=== PATIENT | female | born 1995 | race Caucasian/White ===

== ENCOUNTER 2022-05-17 01:11 | Emergency (ER) | payer BC, SELFPAY ==
[2022-05-17] VITALS (14 sets, daily range): BP systolic 125–154; BP diastolic 77–109; PULSE 89–116; RESP 15–20; TEMP 37.1; O2SAT 95–100
--- NOTE | ~2022-05-17 | CT_ITS ---
EXAMINATION: CT abdomen pelvis w con INDICATION: Right upper quadrant pain TECHNIQUE: Computed tomographic images of the abdomen and pelvis were obtained after the administrati on of 100 cc of Omnipaque 350 intravenous contrast. The dose-length product (DLP) was 1456.49 mGy-cm. Automated exposure control and iterative reconstruction technique were employed. COMPARISON: 12/07/2011 FINDINGS: The lung bases are clear. The heart size is normal. There is focal fatty infiltration of th e liver near the ligamentum teres. The spleen, pancreas, gallbladder, and adrenal glands are normal. The kidneys are unremarkable. No pathologically enlarged abdominal or pelvic lymph nodes are identifi ed. There is no free intraperitoneal gas or evidence of bowel obstruction. The appendix is normal. A moderate volume of colonic stool is present. IMPRESSION: 1. No CT correlate for the patient's symptoms. Reviewed, dictated and finalized at location A.
[2022-05-17 01:57] LABS: Appearance Urine Clear (Clear); Bilirubin Urine Negative (Negative); Blood Urine Trace-lysed (Negative); Color Urine Yellow (Yellow); Glucose Urine UA 3+ mg/dL (Negative); Ketones Urine 2+ mg/dL (Negative); Leukocyte Esterase Ur Negative LEU/UL (Negative); Nitrate Urine Negative (Negative); Protein Urine Negative (Negative); Urobilinogen Urine 0.2 mg/dL (<2.0); pH Urine 5.5 (5.0-9.0)
[2022-05-17 01:57] LABS: Basophils Absolute Auto 0.1 K/mm3 (0.0-0.1); Basophils Percent Auto 0.7 % (0.2-1.2); Eosinophils Absolute Auto 0.1 K/mm3 (0-0.3); Eosinophils Percent Auto 1.8 % (0-4.4); Hematocrit 42.3 % (37.0-47.0); Hemoglobin 14.4 g/dL (12.0-15.0); Immature Granulocyte Absolute 0.02 K/mm3 (0.00-0.031); Immature Granulocyte Percent A 0.3 % (0-0.5); Lymphocytes Absolute Auto 2.08 K/mm3 (0.9-3.2); Lymphocytes Percent Auto 29.5 % (18.3-44.2); Mean Corpuscular Hemoglobin 28.2 pg (26-34); Mean Corpuscular Volume 82.8 fl (80-100); Mean Platelet Volume 10.4 fl (7.4-10.4); Monocytes Absolute Auto 0.8 K/mm3 (0.1-0.6); Monocytes Percent Auto 11.2 % (2.6-8.5); Neutrophils Percent Auto 56.5 % (45.5-73.1); Platelet Count Result 218 k/mm3 (150-375); Red Blood Count 5.11 M/mm3 (4.2-5.4)
[2022-05-17 02:05] LABS: Mucus Urine Rare /lpf; RBC Urine 0-2 /hpf (0-2); Squamous Epithelial Cell Urine Rare /hpf (Few); WBC Urine 0-3 /hpf
[2022-05-17 02:11] LABS: Carbon Dioxide 24 mmol/L (22-30); Chloride 97 mmol/L (98-107)
[2022-05-17 02:24] LABS: Albumin Level 4.7 g/dL (3.5-5.1); Alkaline Phosphatase 90 U/L (38-126); Aspartate Amino Transferase 21 U/L (14-36); Bilirubin,Total 0.7 mg/dL (0.2-1.3); Calcium 9.4 mg/dL (8.4-10.2); Estimated CRCL calculation 153 ml/min; Estimated Glomerular Filt Rate > 60; Glucose 318 mg/dL (65-110); Potassium 3.9 mmol/L (3.4-5.0)
[2022-05-17 02:43] LABS: Add Urine Microscopic? YES
[2022-05-17 02:49] LABS: Anion Gap 14 mmol/L (8-16); Blood Urea Nitrogen 15 mg/dL (7-17); Lipase 95 U/L (23-300); Sodium 135 mmol/L (137-145)
[2022-05-17 03:13] LABS: Alanine Aminotransferase 21 U/L (6-35)
[2022-05-17] MEDS: ONDANSETRON INJ 4 MG/2 ML VIAL IV PUSH (03:57)
[2022-05-17] MEDS: LACTATED RINGERS 1,000 ML 999 ML IV CONT (03:57)
--- NOTE | 2022-05-17 03:58 | ED.GENADULT ---
HPI - General Adult General Chief complaint: Unspecified Stated complaint: multiple complaints Time Seen by Provider: 05/17/22 01:59 History of Present Illness HPI narrative: 27-year-old female with history of diabetes who states that she has been feeling slightly nauseous with some right upper quadrant discomfort for a few days, she is also endorsing some sinus drainage. No fevers or chills. Related Data Allergies Allergy/AdvReac Type Severity Reaction Status Date / Time No Known Allergies Allergy Verified 05/17/22 01:52 Review of Systems Review of Systems: CONST: No fever. HEENT: Sinus drainage C/V: No chest pain RESP: No cough GI: Reports abdominal pain, nausea, vomiting : No dysuria. M/S: No joint pain. SKIN: No rash. NEURO: [No headache or focal numbness or weakness] PSYCH: [No depression] [facility] Past Medical History Medical History (Updated 05/17/22 @ 06:40 by Jessica Suero MD) Diabetes Exam Narrative: EXAMINATION OF ORGAN SYSTEMS/BODY AREAS: Constitutional: Vital signs per nursing GENERAL:[No acute distress, non-toxic appearing.] HEAD: Normal with no signs of head trauma. EYES: EOMI, conjunctiva normal ENT: Hearing grossly intact, no sinus tenderness LUNGS: Nonlabored breathing. HEART: [Regular rate and rhythm] ABD: [Soft], [minimally tender to deep palpation RUQ without Carter's sign] EXT: Normal range of motion SKIN: [No rashes or lesions.] NEURO: [Alert and oriented x 3. No gross focal sensory or strength deficits.] PSYCH: Normal affect Course Vital Signs Vital signs: Vital Signs Temperature 98.8 F 05/17/22 01:14 Pulse Rate 116 H 05/17/22 01:14 Respiratory Rate 16 05/17/22 01:14 Blood Pressure 154/109 H 05/17/22 01:14 Pulse Oximetry 100 05/17/22 01:14 Temperature 98.8 F 05/17/22 01:14 Pulse Rate 90 05/17/22 05:28 Respiratory Rate 18 05/17/22 05:28 Blood Pressure 137/82 05/17/22 05:28 Pulse Oximetry 100 05/17/22 05:28 Medical Decision Making MDM Narrative Medical decision making narrative: Electronic medical record was reviewed. Patient presented to the ED with complaint of [abdominal pain and nausea]. Vitals notable for tachycardia. Physical exam revealed soft abdomen with very minimal tenderness to deep palpation to the right upper quadrant Based on the patient's history and physical exam, my differential includes but is not limited to [gastritis, gastroenteritis, cholecystitis, pancreatitis, DKA]. [IV access was established by nursing staff. Patient was given zofran, IV fluids]. CBC, BMP, lipase, LFTs, bilirubin and alk phos were obtained. Labs were pertinent for some ketonuria without anion gap. [Decision was made to obtain a CT-abdomen to evaluate for acute abdominal process. CT-abdomen is unremarkable for acute intra-abdominal process, does show hepatomegaly and splenomegaly.] On reevaluation, the patient states that they are feeling much better. There were no witnessed episodes of vomiting in the emergency department. They are not complaining of any new abdominal pain. Repeat examination did not show any significant guarding or rebound. No new tenderness. At this time I do not feel there is any further emergent treatment to be provided. The patient was given strict return precautions, if they are to develop any worsening abdominal pain, vomiting, or blood in the vomit they are to return to the emergency department immediately. Patient verbally acknowledges understanding these directions. She was also requesting antibiotics for her sinusitis, I did explain that there is no indication for antibiotics in the first 10 days of symptoms as this was likely a viral sinusitis, however given her concern I did prescribe a [id number] antibiotics which she is not to start taking unless her symptoms have been ongoing for more than 10 days. [The patient was informed of the above diagnostic test findings.] No further workup is necessary at this time. They will be discha
--- NOTE | 2022-05-17 04:30 | PC.NURSE ---
Went into pt room to do hourly rounds. Noted arm with IV bent and IV not flowing. I/S to leave arm straight
== END 2022-05-17 05:31 | disposition home or self-care (01) ==
PROVIDERS: Emergency Provider Emergency Medicine
DX: R10.11 Right upper quadrant pain (principal); R11.0 Nausea; R16.0 Hepatomegaly, not elsewhere classified; J01.90 Acute sinusitis, unspecified
CPT/HCPCS: 36415; 74177; 80053; 81001; 81025; 83690; 85025; 96361; 96374; 99284; J2405; J7120; Q9967

== ENCOUNTER 2022-09-11 11:39 | Outpatient (CLI) | payer OTHER, SELFPAY ==
[2022-09-11 20:08] LABS: Alanine Aminotransferase 16 U/L (6-35); Albumin Level 4.3 g/dL (3.5-5.1); Alkaline Phosphatase 71 U/L (38-126); Anion Gap 9 mmol/L (8-16); Aspartate Amino Transferase 23 U/L (14-36); Bilirubin,Total 0.7 mg/dL (0.2-1.3); Blood Urea Nitrogen 11 mg/dL (7-17); Calcium 8.7 mg/dL (8.4-10.2); Carbon Dioxide 24 mmol/L (22-30); Chloride 105 mmol/L (98-107); Cholesterol 205 mg/dL (0-200); Estimated Glomerular Filt Rate > 60; Glucose 258 mg/dL (65-110); HDL Direct 43 mg/dL; Potassium 4.1 mmol/L (3.4-5.0); Sodium 138 mmol/L (137-145); Triglycerides 85 mg/dL (<150)
[2022-09-11 20:20] LABS: LDL Cholesterol Direct 132 mg/dL
[2022-09-11 20:34] LABS: Vitamin D 25 Hydroxy 14.6 ng/mL
[2022-09-11 20:50] LABS: Hepatitis B Surface Antigen Negative (Negative)
[2022-09-11 21:02] LABS: HIV 1/2 Ab P24 Ag Result Negative (Negative)
[2022-09-11 22:10] LABS: Hepatitis C Virus Antibody Negative (Negative)
[2022-09-12 10:39] LABS: Rapid Plasma Reagin Non-Reactive (NonReactive)
[2022-09-12 12:01] LABS: Hemoglobin A1C 10.3 % (<5.7)
== END 2022-09-11 11:40 | disposition home or self-care (01) ==
LOC: ANHGOSHLAB 11:40
PROVIDERS: PCP Family Medicine; Visit Provider Family Medicine
DX: Z20.2 Contact with and (suspected) exposure to infections with a predominantly sexual mode of transmission (principal); Z79.899 Other long term (current) drug therapy; E55.9 Vitamin D deficiency, unspecified; E11.69 Type 2 diabetes mellitus with other specified complication; E78.5 Hyperlipidemia, unspecified
CPT/HCPCS: 36415; 80053; 80061; 82306; 83036; 86592; 86703; 86803; 87340; G0432

== ENCOUNTER 2022-12-17 13:00 | Outpatient (RCR) | payer OTHER, SELFPAY | END 2023-01-21 08:35 | disposition home or self-care (01) | LOC: ANHDMC 13:00 | PROVIDERS: PCP Family Medicine; Visit Provider Family Medicine | DX: E11.9 Type 2 diabetes mellitus without complications (principal); Z71.89 Other specified counseling | CPT/HCPCS: G0108 ==

== ENCOUNTER 2023-01-06 08:24 | Outpatient (CLI) | payer OTHER, SELFPAY ==
[2023-01-06 20:50] LABS: Vitamin D 25 Hydroxy 41.6 ng/mL
== END 2023-01-06 08:25 | disposition home or self-care (01) ==
LOC: ANHGOSHLAB 08:25
PROVIDERS: PCP Family Medicine; Visit Provider Family Medicine
DX: E11.9 Type 2 diabetes mellitus without complications (principal); E55.9 Vitamin D deficiency, unspecified
CPT/HCPCS: 36415; 82306; 83036

== ENCOUNTER 2023-05-21 15:10 | Outpatient (CLI) | payer OTHER, SELFPAY ==
[2023-05-21 19:46] LABS: Alanine Aminotransferase 17 U/L (6-35); Albumin Level 4.6 g/dL (3.5-5.1); Alkaline Phosphatase 64 U/L (38-126); Anion Gap 9 mmol/L (8-16); Aspartate Amino Transferase 27 U/L (14-36); Bilirubin,Total 1.2 mg/dL (0.2-1.3); Blood Urea Nitrogen 15 mg/dL (7-17); Calcium 9.5 mg/dL (8.4-10.2); Carbon Dioxide 28 mmol/L (22-30); Chloride 103 mmol/L (98-107); Estimated Glomerular Filt Rate > 60; Glucose 105 mg/dL (65-110); Potassium 5.1 mmol/L (3.4-5.0); Sodium 140 mmol/L (137-145)
[2023-05-21 20:12] LABS: Basophils Absolute Auto 0.1 K/mm3 (0.0-0.1); Basophils Percent Auto 0.8 % (0.2-1.2); Eosinophils Absolute Auto 0.1 K/mm3 (0-0.3); Eosinophils Percent Auto 1.6 % (0-4.4); Hematocrit 41.6 % (37.0-47.0); Immature Granulocyte Absolute 0.02 K/mm3 (0.00-0.031); Immature Granulocyte Percent A 0.2 % (0-0.5); Lymphocytes Absolute Auto 2.38 K/mm3 (0.9-3.2); Lymphocytes Percent Auto 27.3 % (18.3-44.2); Mean Corpuscular HGB Conc 33.7 g/dl (32-36); Mean Corpuscular Hemoglobin 28.2 pg (26-34); Mean Corpuscular Volume 83.7 fl (80-100); Mean Platelet Volume 11.1 fl (7.4-10.4); Monocytes Absolute Auto 0.6 K/mm3 (0.1-0.6); Monocytes Percent Auto 6.9 % (2.6-8.5); Neutrophils Absolute Auto 5.5 K/mm3 (1.3-6.7); Neutrophils Percent Auto 63.2 % (45.5-73.1); Platelet Count Result 281 k/mm3 (150-375); Red Blood Count 4.97 M/mm3 (4.2-5.4); Red Cell Distribution Width 11.8 % (11.5-14.5); White Blood Count 8.7 K/mm3 (4.5-10.0)
[2023-05-22 10:40] LABS: Creatinine Urine 324.2 mg/dL
[2023-05-22 10:45] LABS: MALB Creatinine Ratio 10.2 mg/g (0-30)
== END 2023-05-21 15:11 | disposition home or self-care (01) ==
LOC: ANHGOSHLAB 15:11
PROVIDERS: PCP Family Medicine; Visit Provider Family Medicine
DX: E11.9 Type 2 diabetes mellitus without complications (principal)
CPT/HCPCS: 36415; 80053; 82043; 85025

== ENCOUNTER → 2023-07-16 13:03 | Outpatient (CLI) | payer OTHER, SELFPAY ==
--- NOTE | ~2023-07-16 | US_ITS ---
EXAMINATION: US pelvic complete w TV DATE: 07/16/2023 13:31 INDICATION: Left-sided pelvic pressure Comparison:No prior studies for comparison. TECHNIQUE: Multiple transabdominal and endovaginal sonographic images of the pelvis performed. FINDINGS: The uterus measures 8.9 x 4.6 x 2.9 cm. There is an IUD in the endometrium. There is fluid in the cervix. The endometrial complex measures 5.6 mm. The right ovary measures 3.4 x 2.2 x 2.9 cm and the left ovary measures 2.4 x 2.6 x 1.5 cm. There ar e small follicles in each ovary. Normal doppler signal in both ovaries. There is no free fluid in the pelvis. There are no abnormal masses seen on either side. IMPRESSION: 1. Normal pelvic ultrasound. IUD located in the endometrium. Reviewed, dictated and finalized at location B. 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
== END ==
PROVIDERS: PCP Family Medicine; Visit Provider Family Medicine
DX: R10.2 Pelvic and perineal pain (principal); Z97.5 Presence of (intrauterine) contraceptive device
CPT/HCPCS: 76830; 76856

== ENCOUNTER 2023-09-28 09:28 | Emergency (ER) | payer OTHER, SELFPAY ==
--- NOTE | ~2023-09-28 | XR_ITS ---
EXAMINATION: XR abdomen/kub 1V INDICATION: Epigastric abdominal pain TECHNIQUE: Supine views of the abdomen were obtained on 2 radiographs. COMPARISON: None FINDINGS: The bowel gas pattern is normal. No dilated loops of bowel are identified. The visualized l gabo bases are clear. An IUD is noted. IMPRESSION: 1. No radiographic correlate for the patient's symptoms. Reviewed, dictated and finalized at location F. NSION FORESTER
[2023-09-28 09:48] VITALS: BP 150/71; PULSE 101; RESP 16; TEMP 36.7; O2SAT 100
--- NOTE | 2023-09-28 10:05 | ED.ABDPAIN ---
HPI - Abdominal Pain General Chief Complaint: Abdominal Pain Stated Complaint: Abdominal Pain Source: patient Mode of arrival: ambulatory Limitations: no limitations History of Present Illness HPI narrative: Patient presents for evaluation of GI symptoms since last night around 2300. She reports epigastric pain, nausea vomiting. She states that the pain in the epigastric region is burning. She had 2 episodes of vomiting with brown-colored emesis. She had a bowel movement this morning upon arriving here that was liquid. No blood or mucous in the stool. She denies any urinary symptoms, vaginal bleeding or discharge. She is currently on Ozempic, 2 mg weekly, with last injection yesterday morning around 1100. States home blood sugars are in the 140's. No hx of abdominal surgeries. She is unsure date of LMP as she has an IUD. She typically gets these same symptoms within 12 hrs of her ozempic injection. She did have a heavy meal with pizza after her injection yesterday. Related Data Allergies Allergy/AdvReac Type Severity Reaction Status Date / Time No Known Allergies Allergy Verified 09/28/23 09:54 Review of Systems Review of Systems: CONSTITUTIONAL: Denies fever, chills, or sweats. EYES: Denies visual changes, redness, or discharge. ENT: Denies rhinorrhea, congestion, sore throat, or otalgia. CARDIOVASCULAR: Denies chest pain, palpitations, or edema. RESPIRATORY: Denies cough or dyspnea. GASTROINTESTINAL: Reports abdominal pain, nausea, vomiting and diarrhea. GENITOURINARY: Denies dysuria or hematuria. SKIN: Denies rash or itching. MUSCULOSKELETAL: Denies back pain, joint pain, or myalgia. NEUROLOGIC: Denies headache, numbness, dizziness, or weakness. PSYCHIATRIC: Denies anxiety or depression. [facility] Past Medical History Medical History Allergies Asthma Diabetes Hypertension Surgical History Surgical History No pertinent past surgical history Family History Family History Mother Alcoholism Cancer Social History Social History Smoking status: Never smoker Alcohol intake: current Lack of Transportation: No Lack of Food: Never True Current Housing: I Have Housing Concerned About Future Housing: No Difficulty Paying Gas/Electric Bills: No Difficulty Paying for Meds: No Currently Unemployed: No Education: Bachelor's Degree Difficulty w/ Childcare or Family Care: No Living arrangements: alone Occupation/Education: occupation 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 HEAD: Normocephalic, atraumatic. EYES: PERRLA and EOMI. ENT: Nares clear, no rhinorrhea or epistaxis. Mucous membranes moist. Oropharynx without tonsillar hypertrophy exudate or other lesions. Bilateral TMs pearly suggs nonbulging NECK: Supple. No adenopathy or masses. No carotid bruits or JVD CHEST: Clear to auscultation. No respiratory distress. No wheezes rales or rhonchi HEART: Regular rate and rhythm. No murmur heard. Normal peripheral pulses. ABDOMEN: Soft, nondistended, normal active bowel sounds. There is epigastric tenderness without rebound or guarding EXTREMITIES: Normal range of motion. No edema. SKIN: Warm, dry, no rash. NEURO: No focal deficits. Alert and oriented x3. PSYCH: Normal mood and affect. Course Course Emergency Course: This is a 28-year-old female who presented for evaluation of epigastric pain, nausea, vomiting diarrhea after eating a heavy meal following her ozempic injection yesterday. She has experienced similar symptoms in the past following her injection but symptoms tend to imp
[2023-09-28] MEDS: ONDANSETRON HCL ODT 4 MG TABLET PO (10:13)
[2023-09-28] MEDS: FAMOTIDINE 20 MG TABLET PO (10:13)
== END 2023-09-28 11:30 | disposition home or self-care (01) ==
PROVIDERS: Emergency Provider Nurse Practitioner; PCP Family Medicine
DX: R10.13 Epigastric pain (principal); R11.2 Nausea with vomiting, unspecified; T38.3X5A Adverse effect of insulin and oral hypoglycemic [antidiabetic] drugs, initial encounter; E11.9 Type 2 diabetes mellitus without complications; I10 Essential (primary) hypertension; J45.909 Unspecified asthma, uncomplicated
CPT/HCPCS: 74018; 81003; 81025; 87086; 99213; A9270; G0463

== ENCOUNTER 2023-12-05 08:31 | Outpatient (CLI) | payer OTHER, SELFPAY ==
[2023-12-05 12:40] LABS: Basophils Absolute Auto 0.1 K/mm3 (0.0-0.1); Eosinophils Absolute Auto 0.2 K/mm3 (0-0.3); Eosinophils Percent Auto 3.9 % (0-4.4); Hematocrit 40.2 % (37.0-47.0); Immature Granulocyte Absolute 0.01 K/mm3 (0.00-0.031); Immature Granulocyte Percent A 0.2 % (0-0.5); Lymphocytes Absolute Auto 1.68 K/mm3 (0.9-3.2); Lymphocytes Percent Auto 27.1 % (18.3-44.2); Mean Corpuscular HGB Conc 32.3 g/dl (32-36); Mean Corpuscular Hemoglobin 28.3 pg (26-34); Mean Corpuscular Volume 87.4 fl (80-100); Mean Platelet Volume 11.2 fl (7.4-10.4); Monocytes Absolute Auto 0.4 K/mm3 (0.1-0.6); Monocytes Percent Auto 7.1 % (2.6-8.5); Neutrophils Absolute Auto 3.8 K/mm3 (1.3-6.7); Neutrophils Percent Auto 60.7 % (45.5-73.1); Platelet Count Result 246 k/mm3 (150-375); Red Cell Distribution Width 12.8 % (11.5-14.5); White Blood Count 6.2 K/mm3 (4.5-10.0)
[2023-12-05 12:55] LABS: Alanine Aminotransferase 15 U/L (6-35); Albumin Level 4.6 g/dL (3.5-5.1); Alkaline Phosphatase 50 U/L (38-126); Anion Gap 7 mmol/L (4-12); Aspartate Amino Transferase 40 U/L (14-36); Bilirubin,Total 0.8 mg/dL (0.2-1.3); Blood Urea Nitrogen 13 mg/dL (7-17); Calcium 9.6 mg/dL (8.4-10.2); Carbon Dioxide 27 mmol/L (22-30); Chloride 107 mmol/L (98-107); Cholesterol 118 mg/dL (0-200); Estimated Glomerular Filt Rate > 60; Glucose 90 mg/dL (65-110); HDL Direct 43 mg/dL; Potassium 4.5 mmol/L (3.4-5.0); Sodium 141 mmol/L (137-145); Triglycerides 54 mg/dL (<150)
[2023-12-05 13:06] LABS: LDL Cholesterol Direct 65 mg/dL
[2023-12-05 14:39] LABS: Free T4 Free Thyroxine 1.24 ng/mL (0.78-2.19)
[2023-12-05 14:58] LABS: Hemoglobin A1C 5.4 % (<5.7)
== END 2023-12-05 08:32 | disposition home or self-care (01) ==
LOC: ANHGOSHLAB 08:33
PROVIDERS: PCP Family Medicine; Visit Provider Family Medicine
DX: E11.69 Type 2 diabetes mellitus with other specified complication (principal); E78.5 Hyperlipidemia, unspecified; R53.83 Other fatigue
CPT/HCPCS: 36415; 80053; 80061; 83036; 84439; 84443; 85025

== ENCOUNTER 2024-04-20 11:02 | Outpatient (CLI) | payer OTHER, SELFPAY ==
[2024-04-20 13:09] LABS: Alanine Aminotransferase 12 U/L (6-35); Albumin Level 4.5 g/dL (3.5-5.1); Alkaline Phosphatase 59 U/L (38-126); Anion Gap 10 mmol/L (4-12); Aspartate Amino Transferase 47 U/L (14-36); Blood Urea Nitrogen 10 mg/dL (7-17); Calcium 9.3 mg/dL (8.4-10.2); Carbon Dioxide 25 mmol/L (22-30); Chloride 101 mmol/L (98-107); Estimated Glomerular Filt Rate > 60; Glucose 105 mg/dL (65-110); Potassium 4.9 mmol/L (3.4-5.0); Sodium 136 mmol/L (137-145)
[2024-04-20 14:55] LABS: Hemoglobin A1C 5.3 % (<5.7)
[2024-04-20 20:12] LABS: Creatinine Urine 29.7 mg/dL
[2024-04-20 20:28] LABS: MALB Creatinine Ratio < 20.2 mg/g (0-30); Microalbumin Urine Random < 6.0 mg/L (0-16.7)
== END 2024-04-20 11:03 | disposition home or self-care (01) ==
LOC: ANHGOSHLAB 11:03
PROVIDERS: PCP Family Medicine; Visit Provider Family Medicine
DX: E11.9 Type 2 diabetes mellitus without complications (principal)
CPT/HCPCS: 36415; 80053; 82043; 83036

== ENCOUNTER 2024-05-25 10:22 | Outpatient (CLI) | payer OTHER, SELFPAY ==
--- NOTE | ~2024-05-25 | US_ITS ---
Abdominal Sonogram: Real-time sonographic imaging of the abdomen was performed. Clinical History: Abdominal pain Findings: The liver appears normal with no evidence of mass lesion or bile duct dilatation. Main por fanta vein demonstrates normal direction of flow. The spleen is upper limits of normal in size without evidence of focal lesion. The gallbladder is well distended, and appears normal with no evidence of gallstone or wall thickening. The common bile duct measures 4 mm. The visualized pancreas, aorta, an d IVC are unremarkable. The right kidney measures 10.5 cm in length and the left kidney measures 11. 9 cm. There is no hydronephrosis or renal calculus. Impression: Unremarkable abdominal ultrasound. Reviewed, dictated and finalized at location . Impression: Unremarkable abdominal ultrasound.
== END 2024-05-25 10:23 | disposition home or self-care (01) ==
LOC: GOSHIMG 10:24
PROVIDERS: PCP Family Medicine; Visit Provider Family Medicine
DX: R10.9 Unspecified abdominal pain (principal)
CPT/HCPCS: 76700

== ENCOUNTER 2024-12-21 08:50 | Outpatient (CLI) | payer OTHER, SELFPAY ==
--- OUTSIDE RECORDS SUMMARY | 2024-12-21 09:19 | XMS_ITS | Clinical Summary ---
Author Organization [facility] Address [address] [place] [address] Care Team Providers Care Millwright Supervisor Name Role Phone Unavailable Primary Care Provider Unavailabl e Allergies No known active allergies Medications fluticasone propionate (FLONASE) 50 mcg/actuation nasal spray Administer 1 spray into each nostril daily as needed Active metFORMIN (GLUCOPHAGE) 500 mg tablet Take 1,000 mg by mouth 2 (two) times a day with meals Active Social History Tobacco Use Types Packs/Day Years Used Date Smoking Tobacco: Never Assessed Personal Safety Answer Date Recorded Getting School Help Needed Not on file 10/25 Comments Unknown Sex and Gender Information Value Date Recorded Sex Assigned at Not on file Legal Sex Female 9:31 AM CDT Gender Identity Not on file Sexual Orientation Not on file Last Filed Vital Signs Vital Sign Reading Time Taken Comments Blood Pressure 145/97 05/21/2022 2:30 PM CDT Pulse 81 05/21/2022 2:30 PM CDT Temperature 2.9 C (37.2 F) 05/21/2022 9:48 AM CDT Respiratory Rate 16 05/21/2022 2:30 PM CDT Oxygen Saturation 97% 05/21/2022 2:30 PM CDT Inhaled Oxygen Concentration - - Weight 111.1 kg (245 lb) 05/21/2022 9:48 AM CDT Height - - Body Mass Index - - Plan of Treatment Health Maintenance Due Date Last Done Comments Cervical Cancer Screening 1993 Depression Screening 1993 Hepatitis C Screening 1993 DTaP/Tdap/Td Vaccine (1 - Tdap) 2004 Varicella Vaccines (1 of 2 - 13+ 2-dose series) 2006 Hepatitis B Screening 2011 Regular Well Visit/Exam 18-64 2011 Influenza Vaccine (#1) 2024 HPV Vaccines Aged Out No longer eligi ble based on patient's age to complete this topic Pneumococcal vaccine <65 Aged Out No longer eligible based on patient's age to complete this topic Insurance [employer] ACCESS OOS [employer] ACCESS OOS BLUE ACCESS OOS
--- OUTSIDE RECORDS SUMMARY | 2024-12-21 09:19 | XMS_ITS | Continuity of Care Document ---
Author Organization [facility] Address [email or web address] [place] [address] Phone Care Team Providers Care Puncher Name Role Phone Bill Daniel MD Unavailable Unavailable Allergies, Adverse Reactions, Alerts Substance Reaction Status Criticality No Known Allergies Active No Inform ation Medications Medication Instructions Dosage Effective Dates (start - stop) Status Comments Valtrex 500 mg tablet take 1 tablet by o ral route 2 times every day 500 MG - Active Problems Condition Type Effective Dates (start - stop) Clini srinivas Status Comments No Known Problems Procedures Procedure Date PREV VISIT, NEW, AGE 18-39 OFFICE/OUTPATIENT VISIT, [facility] Advance Directives Directive Yes / No Effective Date File Name No Information Encounters Encounter Description Practice Location Reason(s) For Visit Diagnoses Date Provider Providers Copied on Encounter PREV VISIT, NEW, AGE 18-39 [facility], [address] [place], [place], [id number], [place] tel:[phone] [facility] Physical (chief complaint) Encounter for general adult medical exam w abnormal findingsViral infectionRashIrrita ble bowel syndrome [address] [place], [place], [id number] , [place]. tel:[phone] Referring Provider: Bill Daniel, [address] [place], [place], [id number]. tel:[phone] Family History Family Member Type Diagnosis Age At Onset Brother Problem (finding) Alive and well Father Problem (finding) unknown Mother Problem (finding) Alive and well Maternal grandmother Problem (finding) crohn disease Payers Payer name Insurance type Covered democrat ID Authormarcelinoa tirigo(s) No Information Social History Type Description Quantity Date Captured Comments Alcohol Use Details beer & wine Caffeine Use Details Unknown Tobacco Use Status Current non-smoker 19 Smoking Status Never smoker Non-Smoking Tobacco Use Details : No Details Available : No Details Available Sex Female Vital Signs Date / Time: Height Weight BMI Pulse Rate Blood Pressure Temperature Respiratory Rate Body Surface Area Head Circumference BMI percentile Pulse Ox Inhaled Ox 4:08 PM 66.50 in 315.60 lbs 50.1 8 kg/m eter (2) 82 /min 132/86 mm[Hg] 98.3 F 20 /min Chief Complaint And Reason For Visit From encounter dated '06/08/2019 14:45'. Physical (chief complaint). Description: Pt needs annual physical Pt c/o acute onset of low abdominal pain, watery and regular diarrhea since 10 days ago Pt also notices mid abdominal pain with nausea without vomiting. Pt has crampy abdominal pain pt states that she did have poor appetite last weekand she notices more lower abdominal cramp and she usually has diarrhea about 30 mins after food Ptdenies any traveling buyer denies any sick contact pt did not eat any food that maybe contaminated. Pt took some pepto bismo and she notices some dark color diarrhea after pepto but currently resolved since 5 days ago pt only took pepto last friday. Pt currently has normal appetite and her GI symptoms resolved with almost normal stool. Pt denies any abd pain or nausea, Pt also notices intermittent bumpy rash around hand and between fingers for 4 months. Pt states that it looks like one slightly red bump and only one at a time and it blisters up when she scratches it. Pt notices some occasional drainage from the blisters. pt denies any similar lesion or rash rest of body. Pt denies any itching Plan Of Treatment Date Type Action Status Goal Special diet education compl eted History Of Present Illness Encounter Date Complaint History Of Prese nt Illness Physical Pt needs annual physical Pt c/o acute onset of low abdominal pain, watery and regular diarrhea since 10 days ago Pt also notices mid abdominal pain with nausea without vomiting. Pt has crampy abdominal pain pt states that she did have poor appetite last week and she notices more lower abdominal cramp and she usually has diarrhea about 30 mins after food Pt denies any traveling buyer denies any sick contact pt did not eat any food that maybe contaminated. Pt took some pepto bismo and she notices some dark color diarrhea after pepto but currently resolved since 5 days ago pt only took pepto last friday. Pt currently has normal appetite and her GI symptoms resolved with almost normal stool. Pt denies any abd pain or nausea, Pt also notices intermittent bumpy rash around hand and between fingers for 4 months. Pt states that it looks like one slightly red bump and only one at a time and it blisters up when she scratches it. Pt notices some occasional drainage from the blisters. pt denies any similar lesion or rash rest of body. Pt denies any itching Instructions Date Instruction Additional Infor mation Special diet education Related t o Body mass index (BMI) 50.0-59.9, adult Assessments Type Assessment Date assessment Encounter for general adult [facility] exam w abnormal findings assessment Viral infection assessment Rash assessment Irritable bowel syndrome 2018 Mental Status Date Cognitive Assessment Orientation - [place] ed to time, place, person, situation.
--- OUTSIDE RECORDS SUMMARY | 2024-12-21 09:19 | XMS_ITS | Referral Summary ---
Author Organization [facility] Address [address] [place] [address] Care Team Providers Care Nursing Assistant Name Role Phone Unavailable Primary Care Provider [...] Mass Index - - Plan of Treatment Not on file Insurance [employer] OOS BLUE ACCESS OOS BLUE ACCESS OOS
[2024-12-21 13:58] LABS: Alanine Aminotransferase 18 U/L (6-35); Albumin Level 4.2 g/dL (3.5-5.1); Alkaline Phosphatase 79 U/L (38-126); Aspartate Amino Transferase 52 U/L (14-36); Bilirubin,Total 0.5 mg/dL (0.2-1.3)
== END 2024-12-21 08:51 | disposition home or self-care (01) ==
LOC: ANHGOSHLAB 08:51
PROVIDERS: PCP Family Medicine; Visit Provider Family Medicine
DX: R74.8 Abnormal levels of other serum enzymes (principal)
CPT/HCPCS: 36415; 80076

== ENCOUNTER 2024-12-22 11:22 | Outpatient (CLI) | payer OTHER, SELFPAY ==
--- OUTSIDE RECORDS SUMMARY | 2024-12-22 12:53 | XMS_ITS | Referral Summary ---
Author Organization [facility] Address [address] [place] [address] Care Team Providers Care Legal Project Manager Name Role Phone Unavailable Primary Care Provider [...] Plan of Treatment Not on file Insurance [employer] OOS BLUE ACCESS OOS BLUE ACCESS OOS
--- OUTSIDE RECORDS SUMMARY | 2024-12-22 12:53 | XMS_ITS | Clinical Summary ---
Author Organization [facility] Address [address] [place] [address] Care Team Providers Care Goggles Assembler Name Role Phone Unavailable Primary Care Provider [...] patient's age to complete this topic Insurance [employer] ACCESS OOS [employer] ACCESS OOS BLUE ACCESS OOS
--- OUTSIDE RECORDS SUMMARY | 2024-12-22 12:53 | XMS_ITS | Continuity of Care Document ---
Author Organization [facility] Address [address] [facility] [place] [address] Phone Care Team Providers Care Policy Director Name Role Phone Bill Daniel MD Unavailable [...] PREV VISIT, NEW, AGE 18-39 OFFICE/OUTPATIENT VISIT, [facility] Advance Directives Directive Yes / No Effective Date File Name No Information Encounters Encounter Description Practice Location Reason(s) For Visit Diagnoses Date Provider Providers Copied on Encounter PREV VISIT, NEW, AGE 18-39 [facility], [address] [place], [place], [id number], [place] tel:[phone] [facility] Physical (chief complaint) Encounter for general adult medical exam w abnormal findingsViral infectionRashIrrita ble bowel syndrome [address] [place], [place], [id number] , [place]. tel:[phone] Referring Provider: Bill Daniel, [address] [place], [place], [id number]. 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
[2024-12-22 20:07] LABS: Basophils Absolute Auto 0.1 K/mm3 (0.0-0.1); Basophils Percent Auto 0.7 % (0.2-1.2); Eosinophils Absolute Auto 0.2 K/mm3 (0-0.3); Eosinophils Percent Auto 2.1 % (0-4.4); Hematocrit 40.1 % (37.0-47.0); Hemoglobin 13.1 g/dL (12.0-15.0); Immature Granulocyte Absolute 0.14 K/mm3 (0.00-0.031); Lymphocytes Absolute Auto 1.76 K/mm3 (0.9-3.2); Lymphocytes Percent Auto 25.2 % (18.3-44.2); Mean Corpuscular HGB Conc 32.7 g/dl (32-36); Mean Corpuscular Hemoglobin 28.5 pg (26-34); Mean Corpuscular Volume 87.4 fl (80-100); Mean Platelet Volume 11.4 fl (7.4-10.4); Monocytes Absolute Auto 0.4 K/mm3 (0.1-0.6); Monocytes Percent Auto 6.3 % (2.6-8.5); Neutrophils Absolute Auto 4.5 K/mm3 (1.3-6.7); Neutrophils Percent Auto 63.7 % (45.5-73.1); Platelet Count Result 242 k/mm3 (150-375); Red Blood Count 4.59 M/mm3 (4.2-5.4); Red Cell Distribution Width 11.9 % (11.5-14.5)
[2024-12-22 21:13] LABS: Free T4 Free Thyroxine 1.04 ng/dL (0.78-2.19); Vitamin D 25 Hydroxy 43.7 ng/mL
[2024-12-22 22:09] LABS: Hemoglobin A1C 5.3 % (<5.7)
[2024-12-22 22:10] LABS: Anion Gap 8 mmol/L (4-12); Blood Urea Nitrogen 12 mg/dL (7-17); Calcium 9.5 mg/dL (8.4-10.2); Carbon Dioxide 26 mmol/L (22-30); Chloride 103 mmol/L (98-107); Cholesterol 158 mg/dL (0-200); Estimated Glomerular Filt Rate > 60; Glucose 97 mg/dL (65-110); HDL Direct 61 mg/dL; Potassium 5.6 mmol/L (3.4-5.0); Sodium 137 mmol/L (137-145); Triglycerides 60 mg/dL (<150)
[2024-12-22 22:20] LABS: LDL Cholesterol Direct 69 mg/dL
[2024-12-22 22:41] LABS: Thyroid Stimulating Hormone 0.808 uIU/mL (0.465-4.680)
== END 2024-12-22 11:23 | disposition home or self-care (01) ==
LOC: ANHGOSHLAB 11:23
PROVIDERS: PCP Family Medicine; Visit Provider Family Medicine
DX: E55.9 Vitamin D deficiency, unspecified (principal); E11.69 Type 2 diabetes mellitus with other specified complication; E78.5 Hyperlipidemia, unspecified; R74.8 Abnormal levels of other serum enzymes; R53.83 Other fatigue
CPT/HCPCS: 36415; 80048; 80061; 82306; 83036; 84439; 84443; 85025

== ENCOUNTER 2025-01-10 12:46 | Outpatient (CLI) | payer OTHER, SELFPAY ==
--- OUTSIDE RECORDS SUMMARY | 2025-01-10 12:52 | XMS_ITS | Referral Summary ---
Author Organization [facility] Address [address] [place] [address] Care Team Providers Care Golf Cart Maker Name Role Phone Unavailable Primary Care Provider [...] Plan of Treatment Not on file Insurance [employer] OOS BLUE ACCESS OOS BLUE ACCESS OOS
--- OUTSIDE RECORDS SUMMARY | 2025-01-10 12:52 | XMS_ITS | Clinical Summary ---
Author Organization [facility] Address [address] [place] [address] Care Team Providers Care Product Consultant Name Role Phone Unavailable Primary Care Provider [...] patient's age to complete this topic Insurance [employer] ACCESS OOS [employer] ACC[employer] OOS BLUE ACCESS OOS
--- OUTSIDE RECORDS SUMMARY | 2025-01-10 12:52 | XMS_ITS | Continuity of Care Document ---
Author Organization [facility] Address [address] [facility] [place] [address] Phone Care Team Providers Care Clinical Phlebotomist Name Role Phone Bill Daniel MD Unavailable [...] PREV VISIT, NEW, AGE 18-39 OFFICE/OUTPATIENT VISIT, [facility] Advance Directives Directive Yes / No Effective Date File Name No Information Encounters Encounter Description Practice Location Reason(s) For Visit Diagnoses Date Provider Providers Copied on Encounter PREV VISIT, NEW, AGE 18-39 [facility], [address] [place], [place], [id number], [place] tel:[phone] [facility] Physical (chief complaint) Encounter for general adult medical exam w abnormal findingsViral infectionRashIrrita ble bowel syndrome [address] [place], [place], [id number] , [place]. tel:[phone] Referring Provider: Bill Daniel, [address] [place], [place], [id number]. 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
[2025-01-10 20:13] LABS: Basophils Absolute Auto 0.1 K/mm3 (0.0-0.1); Eosinophils Absolute Auto 0.1 K/mm3 (0-0.3); Eosinophils Percent Auto 1.8 % (0-4.4); Hematocrit 40.8 % (37.0-47.0); Hemoglobin 13.6 g/dL (12.0-15.0); Immature Granulocyte Absolute 0.01 K/mm3 (0.00-0.031); Immature Granulocyte Percent A 0.2 % (0-0.5); Lymphocytes Absolute Auto 1.83 K/mm3 (0.9-3.2); Mean Corpuscular HGB Conc 33.3 g/dl (32-36); Mean Corpuscular Hemoglobin 28.6 pg (26-34); Mean Corpuscular Volume 85.9 fl (80-100); Mean Platelet Volume 11.5 fl (7.4-10.4); Monocytes Absolute Auto 0.4 K/mm3 (0.1-0.6); Monocytes Percent Auto 5.7 % (2.6-8.5); Neutrophils Absolute Auto 3.7 K/mm3 (1.3-6.7); Neutrophils Percent Auto 61.3 % (45.5-73.1); Platelet Count Result 231 k/mm3 (150-375); Red Blood Count 4.75 M/mm3 (4.2-5.4); Red Cell Distribution Width 12.2 % (11.5-14.5); White Blood Count 6.1 K/mm3 (4.5-10.0)
[2025-01-10 20:22] LABS: Prothrombin Time 13.3 Seconds (11.1-14.7)
[2025-01-10 21:05] LABS: Alanine Aminotransferase 17 U/L (6-35); Albumin Level 4.6 g/dL (3.5-5.1); Alkaline Phosphatase 65 U/L (38-126); Anion Gap 11 mmol/L (4-12); Aspartate Amino Transferase 43 U/L (14-36); Bilirubin,Total 0.7 mg/dL (0.2-1.3); Blood Urea Nitrogen 10 mg/dL (7-17); Calcium 9.1 mg/dL (8.4-10.2); Carbon Dioxide 25 mmol/L (22-30); Chloride 104 mmol/L (98-107); Estimated Glomerular Filt Rate > 60; Glucose 95 mg/dL (65-110); Sodium 140 mmol/L (137-145)
[2025-01-10 21:50] LABS: Iron 62 ug/dL (37-170)
[2025-01-10 21:52] LABS: Immunoglobulin G 1067 mg/dL (700-1600)
[2025-01-10 22:05] LABS: Percent Iron Saturation 17 % (20-50)
[2025-01-10 22:08] LABS: Hepatitis B Surface Antigen Negative (Negative)
[2025-01-10 22:13] LABS: HAV RESULT Negative (Negative); Hepatitis B Core IgM Result Negative (Negative)
[2025-01-10 22:25] LABS: Hepatitis C Virus Antibody Negative (Negative)
[2025-01-11 21:18] LABS: Alpha-1-Antitrypsin, QN 149 mg/dL (83-199)
[2025-01-13 17:38] LABS: Mitochondrial (M2) Ab (IgG) <20.0 U
[2025-01-13 22:39] LABS: Actin Antibody (IgG) <20 U (<20)
[2025-01-14 12:58] LABS: LKM 1 Antibody <=20.0 U (<=20.0)
[2025-01-15 16:03] LABS: ALT 10 U/L (6-29); Alpha-2-Macroglobulin 179 mg/dL (106-279); Apolipoprotein A1 117 mg/dL (101-198); Fibrosis Score 0.09; Fibrosis Stage F0; GGT 10 U/L (3-50); Haptoglobin 135 mg/dL (43-212); Necroinflammat Act Grade A0; Reference ID 5502376; Total Bilirubin 0.6 mg/dL (0.2-1.2)
[2025-01-20 07:58] LABS: Immunoglobulin A 233 mg/dL (47-310); TTG IGA AB <1.0 U/mL
== END 2025-01-10 12:47 | disposition home or self-care (01) ==
LOC: ANHGOSHLAB 12:47
PROVIDERS: PCP Family Medicine; Visit Provider Nurse Practitioner
DX: R74.8 Abnormal levels of other serum enzymes (principal); K74.60 Unspecified cirrhosis of liver
CPT/HCPCS: 36415; 80053; 80074; 81596; 82103; 82728; 82784; 83520; 83540; 83550; 85025; 85610; 86038; 86039; 86364; 86376

== ENCOUNTER 2025-07-27 13:12 | Outpatient (CLI) | payer OTHER, SELFPAY ==
--- OUTSIDE RECORDS SUMMARY | 2025-07-27 14:23 | XMS_ITS | Clinical Summary ---
Author Organization [facility] Address [address] [place] [address] Care Team Providers Care Machine Bender Name Role Phone Unavailable Primary Care Provider [...] Plan of Treatment Not on file Insurance Sviral OOS BLUE ACCESS OOS BLUE ACCESS OOS
[2025-07-27 18:52] LABS: Alanine Aminotransferase 16 U/L (6-35); Albumin Level 4.0 g/dL (3.5-5.1); Alkaline Phosphatase 72 U/L (38-126); Aspartate Amino Transferase 26 U/L (14-36); Bilirubin,Total 1.0 mg/dL (0.2-1.3); Total Protein 6.9 g/dL (6.3-8.2)
[2025-07-27 19:48] LABS: Hemoglobin A1C 5.2 % (<5.7)
== END 2025-07-27 13:13 | disposition home or self-care (01) ==
LOC: ANHGOSHLAB 13:14
PROVIDERS: PCP Family Medicine; Visit Provider Family Medicine
DX: E11.9 Type 2 diabetes mellitus without complications (principal); K76.0 Fatty (change of) liver, not elsewhere classified
CPT/HCPCS: 36415; 80076; 82043; 83036